=== PATIENT | female | born 1945 | race Caucasian/White ===

== ENCOUNTER 2019-07-04 14:09 | Emergency (ER) | payer MEDICARE, SELFPAY ==
[2019-07-04 14:15] VITALS: BP 162/75; PULSE 79; RESP 16; TEMP 37.4; O2SAT 96; BMI 29.1
[2019-07-04] MEDS: PROPARACAINE 0.5% OPHTH SOL 1 DROPS EYE-RIGHT (17:27)
[2019-07-04] MEDS: FLUORESCEIN 1 MG STRIP EYE-RIGHT (17:28)
--- NOTE | 2019-07-04 18:17 | PC.NURSE ---
pt thinks she rubbed her right eye a little too hard
[2019-07-04] MEDS: TET,DIPH,PERTUSS(ACELL),VAC/PF 0.5 ML SYRINGE IM (18:23)
[2019-07-04] MEDS: ERYTHROMYCIN OPHTH 1 GM OINT 1 APPLIC EYE-RIGHT (18:24)
[2019-07-04 18:45] VITALS: BP 149/61; PULSE 59; RESP 18; O2SAT 97
--- NOTE | 2019-07-05 00:08 | ED.EYEPROB ---
HPI - Eye Problem <LUPE Solomon - Last Filed: 07/05/19 00:24> General Chief complaint: Eye Problems Stated complaint: needs to get right eye checked Time Seen by Provider: 07/04/19 17:13 Source: patient Mode of arrival: Ambulatory Limitations: no limitations History of Present Illness HPI Narrative: This is a 74-year-old female, nonsmoker, who presents to ED with right eye foreign body sensation and discomfort. Patient reports initially she had similar symptoms 2 weeks ago which resolved. She reports symptoms recurred 5 days ago after she rubbed affected eye hard when she was working and [place]. Patient denies vision changes, fever or chills, or purulent discharge from affected eye. Patient is unsure last tetanus immunization. Patient also reports congestion in her nose, ear pressure, headache with some productive cough. Patient does not have PCP in [facility] and she seeks medical care and medication prescriptions in physician in [place]. Related Data Allergies Allergy/AdvReac Type Severity Reaction Status Date / Time No Known Allergies Allergy Uncoded 01/23/18 12:43 Review of Systems <LUPE Solomon - Last Filed: 07/05/19 00:24> Review of Systems ROS Unobtainable: All systems reviewed & are unremarkable except as noted in HPI and below PFSH <LUPE Solomon - Last Filed: 07/05/19 00:24> Social History Smoking Status: Never smoker Social History Smoking Status: Never smoker Exam <LUPE Solomon - Last Filed: 07/05/19 00:24> Narrative Exam Narrative: GEN: Alert, oriented x 3, well appearing and nourished, and in no acute distress. Head: Normal cephalic, atraumatic. No scalp or temporal tenderness, palpable mass or rash. EYES: Pupils are equal, round, and reactive to light and accommodation. Extraocular muscles are intact bilaterally. Subconjunctival hemorrhage on R eye, no exudate and sclera non-icteric. ENT: Bilateral auditory canals and tympanic membranes clear. Hearing grossly intact. Nose without bleeding or deviation. Purulent discharge and congestion on L nare. Facial sinuses nontender to palpate. Mucous membrane moist, no mucosal lesion. Throat without erythema, tonsillar hypertrophy or exudate. Uvula in midline, airway patent. Neck: Trachea in midline. No JVD, non-tender without lymphadenopathy. No masses or thyroid megaly. Supple, non-tender and no meningeal signs. CARDIAC: Normal regular rate and rhythm without murmurs, gallops, or rubs. No chest wall tenderness. No peripheral edema, cyanosis or pallor. Capillary refill is less than 2 seconds. RESPIRATORY: Lungs are cleat to auscultate bilaterally. No cough, wheezes, rales, or rhonchi. No stridor, respiratory distress, increase work of breathing, or accessary muscle used. ABD: Abdomen soft, nontender and non-distended. No guarding or rebound tenderness to palpate. Bowel sounds are normal in all 4 quadrants. There is no palpable masses or organomegaly. EXT: Full painless ROM of all extremities with no loss of sensation, strength, effusion or edema. SKIN: Warm, dry, normal color for patient. No erythema, lesions or rash over visible areas. BACK: Nontender without deformity or crepitance. No flank tenderness. NEUROLOGICAL: Alert and oriented to place, time and person. Sensation and motor function intact bilaterally. No facial droops, dysphasia. PSYCHIATRIC: Good judgement and reason, without hallucinations, abnormal affect or abnormal behaviors during the examination. Initial Vital Signs Initial Vital Signs: Vital Signs Temperature 99.3 F 07/04/19 14:15 Pulse Rate 79 07/04/19 14:15 Respiratory Rate 16 07/04/19 14:15 Blood Pressure 162/75 H 07/04/19 14:15 Pulse Oximetry 96 07/04/19 14:15 Eyes Alignment and Position: alignment normal Periorbital: periorbital findings normal Eyelids: eyelids normal Cornea: fluorescein used (scan uptake at 9 o'clock where the patient reports discomfort) Direct ophthalmoscopy: normal light reflex Other: IOP 17 in R eye. Uncorrected Visual Acuity OD 20/70; OS 20/30. <Nash Curtis, DO - Last Filed: 07/05/19 09:10> Initial Vital Signs Initial Vital Signs: Vital Signs Temperature 99.3 F 07/04/19 14:15 Pulse Rate 79 07/04/19 14:15 Respiratory Rate 16 07/04/19 14:15 Blood Pressure 162/75 H 07/04/19 14:15 Pulse Oximetry 96 07/04/19 14:15 Scores <Kelechi ModiLUPE Phan - Last Filed: 07/05/19 00:24> GCS [place] coma scale eye opening: Spontaneous Madelyn coma scale verbal response: Orientated Madelyn coma scale motor response: Obey commands Madelyn coma scale total score: 15 Course <Kelechi YoungLUPE Phan - Last Filed: 07/05/19 00:24> Orders Ordered: Discontinued Medications Diphtheria/Tetanus/Acell Pertussis (Adacel) 0.5 ml IM .ONCE ONE Stop: 07/04/19 17:44 Last Admin: 07/04/19 18:23 Dose: 0.5 ml Documented by: CHRISTOPH Erythromycin (Erythromycin Ophth Oint) 1 applic EYE-RIGHT NOW ONE Stop: 07/04/19 17:44 Last Admin: 07/04/19 18:24 Dose: 1 applic Documented by: CHRISTOPH Fluorescein Sodium (Ful-Ellen) 1 mg EYE-RIGHT NOW ONE Stop: 07/04/19 17:15 Last Admin: 07/04/19 17:28 Dose: 1 mg Documented by: CHRISTOPH Proparacaine HCl (Parcaine 0.5% Ophth So) 1 drops EYE-RIGHT NOW ONE Stop: 07/04/19 17:15 Last Admin: 07/04/19 17:27 Dose: 1 drop Documented by: CHRISTOPH Vital Signs Vital signs: Vital Signs - 8 hr 07/04/19 18:45 Pulse Rate 59 L Respiratory Rate 18 Blood Pressure 149/61 H Pulse Oximetry 97 <Nash Curtis DO - Last Filed: 07/05/19 09:10> Orders Ordered: Discontinued Medications Diphtheria/Tetanus/Acell Pertussis (Adacel) 0.5 ml IM .ONCE ONE Stop: 07/04/19 17:44 Last Admin: 07/04/19 18:23 Dose: 0.5 ml Documented by: CHRISTOPH Erythromycin (Erythromycin Ophth Oint) 1 applic EYE-RIGHT NOW ONE Stop: 07/04/19 17:44 Last Admin: 07/04/19 18:24 Dose: 1 applic Documented by: CHRISTOPH Fluorescein Sodium (Ful-Ellen) 1 mg EYE-RIGHT NOW ONE Stop: 07/04/19 17:15 Last Admin: 07/04/19 17:28 Dose: 1 mg Documented by: CHRISTOPH Proparacaine HCl (Parcaine 0.5% Ophth So) 1 drops EYE-RIGHT NOW ONE Stop: 07/04/19 17:15 Last Admin: 07/04/19 17:27 Dose: 1 drop Documented by: CHRISTOPH Vital Signs Vital signs: Vital Signs - 8 hr 07/04/19 18:45 Pulse Rate 59 L Respiratory Rate 18 Blood Pressure 149/61 H Pulse Oximetry 97 MDM - Eye Problem <Kelechi LUPE Tidwell - Last Filed: 07/05/19 00:24> Differential Diagnosis Differential diagnosis: Likely corneal abrasion, conjunctivitis, subconjunctival hemorrhage and corneal ulcer Medical Records Attestation: I reviewed the patient's medical records. 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 Mildly decreased visual acuity on right eye as 20/70 as compared to left eye 20/30. Fluorescein stain was uptake in on 9 O'clock in right eye with subconjunctival hemorrhage. IOP average was normal as 17. Patient was treated with erythromycin abdominal appointment and Tdap was updated today. Patient advised to use [id number] Tylenol and/or Motrin as needed for discomfort. Patient advised to follow up with can reconditioner next week and return precautions were discussed and verbalized understanding. Patient agrees with treatment plan and no further questions were expressed at this time. [facility] Resource phone number has been provided. Discharge Plan Departure Patient Disposition: Home Clinical Impression: Corneal abrasion Qualifiers: Encounter type: initial encounter Laterality: right Qualified Code(s): S05.01XA - Injury of conjunctiva and corneal abrasion without foreign body, right eye, initial encounter Subconjunctival hemorrhage Qualifiers: Laterality: right Qualified Code(s): H11.31 - Conjunctival hemorrhage, right eye Discharge Date/Time: 07/04/19 18:45 Instructions: DI for Corneal Abrasion, DI for Subconjunctival Hemorrhage Activity Restrictions/Additional Instructions: You have been diagnosed with right eye subconjunctival hemorrhage and corneal abrasion. What to do: *Take your medications as directed. Please continue to use erythromycin eye ointment for next 5 days 4 times a day, 1/4 inch at a time. You can also cook pickled meat Mucinex or medications for current cold symptoms and congestion. *Follow up with your primary care provider/Walk-in clinic or opthalmology in 2-3 days, call for an appointment. Let them know you were seen in the ED and that we asked you to be seen in follow up. *Return to ED if you have any new, worsening, or concerning symptoms, such as decreased vision, increasing eye pain, swelling and redness to the eye lids, fever, headache, chest pain, breathing difficulty, unable to tolerate fluids, or any acute concerns. Referrals: [facility] [Outside] (Walk-In Clinic) [facility] [Outside] Thang Arellano MD [Physician] -
== END 2019-07-04 18:45 | disposition home or self-care (01) ==
PROVIDERS: Emergency Provider Nurse Practitioner Family
DX: S05.01XA Injury of conjunctiva and corneal abrasion without foreign body, right eye, initial encounter (principal); H11.31 Conjunctival hemorrhage, right eye; Z23 Encounter for immunization
CPT/HCPCS: 90471; 99283; 90715

== ENCOUNTER 2020-04-01 10:32 | Emergency (ER) | payer MEDICARE, SELFPAY ==
[2020-04-01 10:36] VITALS: BP 196/89; PULSE 87; RESP 14; TEMP 36.3; O2SAT 98; BMI 31.6
--- NOTE | 2020-04-01 10:38 | ED.LOWEXIN ---
HPI - Extremity Injury (Lower) General Chief Complaint: Extremity Injury, Lower Stated Complaint: left ankle pain,fell down stairs Time Seen by Provider: 04/01/20 10:33 Source: patient Mode of arrival: Ambulatory Limitations: no limitations History of Present Illness HPI Narrative: 74-year-old female here for evaluation of left ankle injury. Patient states that approximately 5 days ago she slipped while going down some stairs in front of her house. She twisted her left ankle. She also hit her left knee. Has been ambulatory since then. Has had pain and swelling in her left ankle. No other injuries reported from the event. Has tried elevation and swelling but continues to have discomfort. Related Data Allergies Allergy/AdvReac Type Severity Reaction Status Date / Time No Known Drug Allergies Allergy Verified 04/01/20 10:36 Review of Systems Constitutional Constitutional: Denies headache(s) ENT Ears, Nose, Mouth, and Throat: Denies headache(s) Musculoskeletal Comments: Left ankle pain, left knee pain, right ankle pain Integumentary/Breasts Comments: Bruising and swelling to the left ankle/foot Neurologic Neurologic: Denies headache(s) and Denies sensory deficit Hematologic/Lymphatic Hematologic/Lymphatic: Denies easy bleeding and Denies easy bruising Patient History Medical History Spigelian hernia (Inactive) Social History Smoking Status: Never smoker Smoking Status: Never smoker alcohol intake frequency: 0-2 drinks per day Substance Use Type: does not use Exam Initial Vital Signs Initial Vital Signs: Vital Signs Temperature 97.4 F L 04/01/20 10:36 Pulse Rate 87 04/01/20 10:36 Respiratory Rate 14 04/01/20 10:36 Blood Pressure 196/89 H 04/01/20 10:36 Pulse Oximetry 98 04/01/20 10:36 Const General: cooperative and comfortable Limitations: mental status not altered [facility] Head: normal to inspection and normocephalic Resp Effort & Inspection: normal respiratory effort Cardio Pulses: dorsalis pedis present bilaterally Skin Other: Patient with bruising and discoloration to just proximal of the left ankle to the distal portion the left foot. No breaks in the skin. Neuro Sensory Exam: no sensory deficits noted Extrem Other: Patient has tenderness to palpation medial aspect of the right distal tibia however can flex and extend her ankle without discomfort. Can invert and brigid the right ankle without discomfort. Can provide compression to the syndesmosis of the right lower extremity without any discomfort. Patient also has tenderness to palpation to the medial aspect of the right knee. She can flex and extend her knee without discomfort. Has tenderness to palpation along the lateral aspect of the left ankle. Otherwise the left foot/ankle exam unremarkable. Psych Appearance: grossly normal and well kempt Procedures Orthopedic Splinting/Casting Injury #1: Side: left Lower Extremity Injury Location: ankle Other Orthopedic Equipment: other (Walking boot) Post splinting neuro exam: no change Post splinting vascular exam: no change Placed by: Nursing Course Orders Ordered: ED Orders 04/01/20 10:43 XR ankle LT min 3V Stat Vital Signs Vital signs: Vital Signs - 8 hr 04/01/20 10:36 04/01/20 11:14 04/01/20 11:29 Temperature 97.4 F L Pulse Rate 87 71 Pulse Rate [Left Dorsalis Pedis] 70 Respiratory Rate 14 Blood Pressure 196/89 H Blood Pressure [Right Arm] 150/69 H Pulse Oximetry 98 96 MDM - Extremity Injury (Lower) Imaging Data Extremity x-ray #1: Radiologist's Impression: [address] [address] XRay Report Signed Patient: Beth Nino#: [id number] : 6Acct:[id number] Age/Sex: 74 / FDate of Service: 04/01/20 Loc: ED Accession Number: [id number] Procedure: XR ankle LT min 3V Ordering Provider: Anthony Jackson D.O. PROCEDURE: XR ANKLE LT MIN 3V INDICATIONS: lateral ankle pain after fall TECHNIQUE: 3 views of the ankle were acquired. COMPARISON: None. FINDINGS: Bones: There is a minimally displaced lateral malleolar/distal left fibular fracture. Ankle mortise appears intact. Moderate overlying soft tissue edema. Plantar calcaneal spur. No suspicious bony lesions. Soft tissues: No tibiotalar joint effusion. Achilles tendon appears normal. IMPRESSION: Lateral malleolar/distal fibular fracture. Plantar calcaneal enthesophyte. Dictated by: Isauro Constantino M.D. on 04/01/2020 at 11:39 Approved by: Isauro Constantino M.D. on 04/01/2020 at 11:45 [facility] Narrative Medical decision making narrative: Patient is neurovascularly intact. X-ray show isolated distal fibula fracture and this does correspond with her discomfort. She was placed in a walking boot. She was given return precautions and follow-up instructions. She expressed understanding and agreement. Discharge Plan Departure Patient Disposition: Home Clinical Impression: Left fibular fracture Qualifiers: Encounter type: initial encounter Fibula location: distal Fracture type: closed Fracture morphology: other fracture Qualified Code(s): S82.832A - Other fracture of upper and lower end of left fibula, initial encounter for closed fracture Instructions: How to Use a Walking Boot, Fibula Shaft Fracture Activity Restrictions/Additional Instructions: I recommend that you follow-up with a primary provider. If you do not have 1 you can contact the health human resource adviser at [phone]. You can also follow-up with the [facility]. Their phone numbers [phone]. Wear the walking boot like we discussed. Return to the emergency department for any new or worsening symptoms
--- NOTE | 2020-04-01 10:43 | DI.RAD.S_ITS ---
PROCEDURE: XR ANKLE LT MIN 3V INDICATIONS: lateral ankle pain after fall TECHNIQUE: 3 views of the ankle were acquired. COMPARISON: None. FINDINGS: Bones: There is a minimally displaced lateral malleolar/distal left fibular fracture. Ankle mortise appears intact. Moderate overlying soft tissue edema. Plantar calcaneal spur. No suspicious bony lesions. Soft tissues: No tibiotalar joint effusion. Achilles tendon appears normal. IMPRESSION: Lateral malleolar/distal fibular fracture. Plantar calcaneal enthesophyte. Dictated by: Isauro Constantino M.D. on 04/01/2020 at 11:39 Approved by: Isauro Constantino M.D. on 04/01/2020 at 11:45
[2020-04-01 11:14] VITALS: PULSE 70
[2020-04-01 11:29] VITALS: BP 150/69; PULSE 71; O2SAT 96
== END 2020-04-01 12:10 | disposition home or self-care (01) ==
PROVIDERS: Emergency Provider Emergency Medicine
DX: S82.832A Other fracture of upper and lower end of left fibula, initial encounter for closed fracture (principal); W10.9XXA Fall (on) (from) unspecified stairs and steps, initial encounter
CPT/HCPCS: 73610; 99283